=== PATIENT | female | born 1985 | race Two or more races ===

== ENCOUNTER 2018-12-25 07:33 | Day surgery (SDC) | payer BC ==
[2018-12-25] MEDS ORDERED: ceFAZolin 2 GM/DEXTROSE 100 ML IV ONE (07:46)
[2018-12-25] MEDS ORDERED: LR 1,000 ML IV ONE (07:46)
[2018-12-25] MEDS ORDERED: BUPIVACAINE 0.25% 30 ML SDV ONE (08:01)
[2018-12-25] MEDS ORDERED: MIDAZOLAM 2 MG/2 ML VIAL IVP ONE (08:25)
--- NOTE | 2018-12-25 08:27 | PDANEPAE ---
ANE History of Present Illness Umbilical hernia repair ANE Past Medical History - Cardiovascular History Hx Hypertension: No Hx Arrhythmias: Yes Hx Chest Pain: No Hx Coronary Artery / Peripheral Vascular Disease: No Hx CHF / Valvular Disease: No Hx Palpitations: No Cardiovascular History Comment: INTERMITTENT SVT ABOUT ONCE A MONTH/FEELS STRESS RELATED. HAS NOT ESTABLISHED CARDIOLOGY SINCE MOVING HERE FROM [place]. ELEVATED CHOLESTEROL - Pulmonary History Hx COPD: No Hx Asthma/Reactive Airway Disease: No Hx Recent Upper Respiratory Infection: No Hx Oxygen in Use at Home: No Hx Sleep Apnea: No Sleep Apnea Screening Result - Last Documented: Negative - Neurologic History Hx Cerebrovascular Accident: No Hx Seizures: No Hx Dementia: No - Endocrine History Hx Diabetes: No Hypothyroid: No Hyperthyroid: No Obesity: no - Renal History Hx Renal Disorders: No - Liver History Hx Hepatic Disorders: No - Neurological & Psychiatric Hx Hx Neurological and Psychiatric Disorders: No - Cancer History Hx Cancer: No - Congenital Disorder History Hx Congenital Disorders: No - GI History Hx Gastrointestinal Disorders: Yes Gastrointestinal History Comment: ABD BLOATING - Other Health History Other Health History: RESTLESS LEG SYNDROME. PELVIC ORGAN PROLAPSE AFTER C- SECTION 2011 - Chronic Pain History Chronic Pain: Yes (ABD HERNIA WITH ACTIVITY) - Surgical History Prior Surgeries: REMVL NECK LYMPH NODE 2006 ANE Review of Systems Review of systems is: negative Review of Systems: - Exercise capacity METS (RN): 4 METS ANE Patient History - Allergies Allergies/Adverse Reactions: neomycin Allergy (Verified 12/22/18 14:31) Itching - Home Medications Home medications: home medication list seen and reviewed Home Medications: IMITREX PRN 12/22/18 [Last Taken 2 Months Ago ~10/27/18] - NPO status NPO Status: no food or drink >8 hours NPO Since - Liquids (Date): 12/25/18 NPO Since - Liquids (Time): 00:53 NPO Since - Solids (Date): 12/24/18 NPO Since - Solids (Time): 22:00 - Anes Hx Anes Hx: no prior problems - Smoking Hx Smoking Status: Never smoked ANE Labs/Vital Signs - Vital Signs Height: 177.8 cm Weight: 69.853 kg ANE Physical Exam - Airway Neck exam: FROM Mallampati Score: Class 1 Mouth exam: normal dental/mouth exam, poor dentition - Pulmonary Pulmonary: no respiratory distress, no rales or rhonchi - Cardiovascular Cardiovascular: regular rate and rhythym, no murmur, rub, or gallop - ASA Status ASA Status: I ANE Anesthesia Plan Anesthesia Plan: MAC Total IV Anesthesia: Yes
--- NOTE | 2018-12-25 08:51 | PDHPUP ---
History & Physical Update H&P update statement: This history and physical update is based on an assessment of the patient which was completed after admission or registration (within 24 hours), but prior to the surgery/procedure. H&P update: H&P reviewed & patient examined, no change in patient's condition since H&P completed
[2018-12-25] MEDS ORDERED: fentaNYL 100 MCG/2 ML INJ ONE (09:12)
[2018-12-25] MEDS ORDERED: PROPOFOL/EMULSION 500 MG/50 ML BOTTLE IV ONE (09:13)
--- NOTE | 2018-12-25 10:07 | POSTOPPROG ---
Post Op Note Date of Operation: 12/25/18 Surgeon: Jerel Jay (, FACS) Anesthesiologist: Yenifer Reddy MD Anesthesia: Other (Specify) (MAC) Pre-op Diagnosis: umbilical hernia Post-op Diagnosis: incarcerated umbilical hernia Procedure: repair incarcerated umbilical hernia Findings: 5mm fascial defect/incarcerated pre-peritoneal fat Inf/Abcess present in the surg proc area at time of surgery?: No EBL: Minimal (5 ml) Bowel Protocol: N/A Clean Closure Performed: N/A Specimen(s): hernia sac
[2018-12-25] MEDS ORDERED: ONDANSETRON DISINTEGRATING 4 MG TAB PO PRN (10:08)
[2018-12-25] MEDS ORDERED: OXYCODONE/APAP 5/325 TAB PO PRN (10:08)
[2018-12-25] MEDS ORDERED: OXYCODONE/APAP 5/325 TAB ONE (10:29)
[2018-12-25 11:22] VITALS: BP 107/73
--- NOTE | 2018-12-25 13:01 | GOP ---
[f rep st] OPERATIVE REPORT DATE OF OPERATION: 12/25/2018 SURGEON: Jerel Jay MD, FACS ANESTHESIA: Monitored anesthesia care, Yenifer Reddy MD. PREOPERATIVE DIAGNOSIS: Umbilical hernia. POSTOPERATIVE DIAGNOSIS: Incarcerated umbilical hernia. PROCEDURE PERFORMED: Repair of umbilical hernia, incarcerated. FINDINGS: Approximately 8 mm fascial defect with incarcerated properitoneal fat. ESTIMATED BLOOD LOSS: 5 cc. DESCRIPTION OF PROCEDURE: After informed consent was obtained, the patient was brought to the operating room and placed under monitored anesthesia care. The abdomen was prepped and draped in the usual fashion. Before proceeding, a time- out and identification of the patient was performed. 0.25% Marcaine was used to infiltrate the periumbilical skin, subcutaneous tissues, and deep fascia. A supraumbilical incision was made in a curvilinear fashion. Dissection was carried out through the skin and subcutaneous tissues. The hernia was encountered, dissected circumferentially to the fascial defect. Despite this, it could not easily be reduced into the preperitoneal space as it measured approximately 2 cm in diameter. Rather than enlarge the fascial defect, I elected to resect the hernia sac, which was performed with cautery and the specimen was removed from the field and submitted for permanent section. The fascial defect was then repaired transversely with interrupted 0 Nurolon sutures. The umbilical skin was tacked to the fascia with 3-0 Monocryl suture. Subcutaneous tissues were closed with 3-0 Monocryl suture and the skin was closed with 4-0 Monocryl suture in a subcuticular fashion. Topical Dermabond was applied. Patient was returned extubated to the recovery room in satisfactory condition. Needle, sponge, and instrument count were correct. COMPLICATIONS: None. /[id number]/MODL MTDD
--- NOTE | 2018-12-25 13:39 | POSTANESTH ---
Post Anesthetic Evaluation Cardiovascular Status: Normal, Stable Respiratory Status: Normal, Stable Level of Consciousness/Mental Status: Can Participate in Eval Pain Control: Adequate, Prn Tx Ordered Nausea/Vomiting Control: Adequate, Prn Tx Ordered Complications Possibly Related to Anesthesia: None Noted
== END 2018-12-25 11:24 | disposition home or self-care (01) ==
LOC: FSGY 07:33
PROVIDERS: ATTEND Surgery
PROC: 0WQF0ZZ Repair Abdominal Wall, Open Approach (ICD-10-PCS; principal; 2018-12-25 09:15)
DX: K42.0 Umbilical hernia with obstruction, without gangrene (principal)
CPT/HCPCS: J0690; J2250; J2704; J3010